=== PATIENT | female | born 1990 | race Caucasian/White ===

== ENCOUNTER 2022-08-15 17:07 | Emergency (ER) | payer OTHER ==
[2022-08-15 17:33] VITALS: BP 149/97; PULSE 72; RESP 18; TEMP 98.3; BMI 56.9
[2022-08-15] MEDS ORDERED: MECLIZINE HCL 25 MG TABLET (FP) PO ONE (17:41)
[2022-08-15] MEDS ORDERED: METOCLOPRAMIDE HCL INJECTION 10 MG/2 ML VIAL IVPUSH ONE (17:42)
[2022-08-15] MEDS ORDERED: KETOROLAC TROMETHAMINE 15 MG/ML VIAL IVPUSH ONE (17:42)
[2022-08-15] MEDS ORDERED: SODIUM CHLORIDE 0.9% 1000 ML INFUS.BAG IV ONE (17:45)
[2022-08-15] MEDS ORDERED: KETOROLAC TROMETHAMINE 15 MG/ML VIAL ONE (17:48)
[2022-08-15] MEDS ORDERED: METOCLOPRAMIDE HCL INJECTION 10 MG/2 ML VIAL ONE (17:48)
[2022-08-15] MEDS ORDERED: MECLIZINE HCL 25 MG TABLET (FP) ONE (17:55)
== END 2022-08-15 18:54 | disposition left against medical advice (07) ==
LOC: FER 17:07
PROC: 3E033GC Introduction of Other Therapeutic Substance into Peripheral Vein, Percutaneous Approach (ICD-10-PCS; principal; 2022-08-15)
DX: R42 Dizziness and giddiness (principal); R51.9 Headache, unspecified
CPT/HCPCS: 99284-25